=== PATIENT | female | born 1990 | race Caucasian/White ===

== ENCOUNTER 2018-10-03 10:23 | Emergency (ER) | payer SELFPAY ==
[~2018-10-03] VITALS: Ht 167.6 cm; Wt 70.3 kg
[2018-10-03 10:50] VITALS: Ht 167.6 cm; Wt 70.3 kg
[2018-10-03 12:12] LABS: microscopic required? YES; urine erythrocyte NEGATIVE (NEGATIVE)
[2018-10-03 12:14] VITALS: BP 119/69
== END 2018-10-03 14:39 | disposition home or self-care (01) ==
LOC: ED 10:23
PROVIDERS: Emergency Medicine
DX: M54.6 Pain in thoracic spine (principal); R10.30 Lower abdominal pain, unspecified; N83.209 Unspecified ovarian cyst, unspecified side; Z88.0 Allergy status to penicillin
CPT/HCPCS: Q0162